=== PATIENT | male | born 1950 | race Caucasian/White ===

== ENCOUNTER 2018-01-23 16:08 | Emergency (ER) | payer OTHER ==
[~2018-01-23] VITALS: Ht 170.2 cm; Wt 86.2 kg
[~2018-01-23 16:08] MED LIST: CARDIZEM30 MG PO; COUMADIN7.5 MG PO; DIGOXIN250 MCG PO; ENALAPRIL MALEA10 MG PO; HUMALOG100 U/ML SC; IMDUR30 MG; LANTUS100 U/ML SC; LASIX40 MG PO; LOPRESSOR25 MG PO; RANITIDINE HCL150 M1 PO; ZAROXOLYN5 M1
== END 2018-01-23 22:07 | disposition home or self-care (01) ==
LOC: ER 16:08
DX: N50.89 Other specified disorders of the male genital organs (principal); E86.0 Dehydration